=== PATIENT | female | born 1935 | race Two or more races ===

== ENCOUNTER 2017-10-30 08:26 | Outpatient (CLI) | payer MEDICARE, OTHER ==
[~2017-10-30 08:26] MED LIST: ACYCLOVIR400 MG ORAL; AGGRENOX1 CAP ORAL; BENADRYL25 MG ORAL; BENICAR40 MG PO; LEVOFLOXACIN750 MG ORAL; LEVOTHYROXINE100 MCG PO; LEXAPRO5 MG PO; LOVAZA1 GM PO; MACROBID100 MG ORAL; PREDNISONE20 MG ORAL; PROMETHAZINE V240 ML ORAL; SIMVASTATIN20 MG PO; VITAMIN D50000 UNIT PO; ZITHROMAX250 MG ORAL
--- NOTE | 2017-10-30 14:36 | Diagnostic Imaging Report ---
Indication: Cough Technique: 2 views of the chest Comparison: 11/05/2015 Findings: Less optimal inspiration with basilar atelectatic changes on the right. Heart size upper limits of normal. Aorta is tortuous calcified and ectatic, appearing more ectatic than on the prior exam. Impression: Hypoventilatory exam with right basilar atelectasis. Equivocally increased thoracic aortic ectasia since prior exam, may be artifactual due to slight differences in degree of inspiration and exposure positioning. Nonetheless, consider CT scan to rule out thoracic aortic aneurysm as clinically indicated
== END 2017-10-30 10:26 | disposition home or self-care (01) ==
LOC: RAD 08:26
DX: R05 Cough (principal); J98.11 Atelectasis
CPT/HCPCS: 71046

== ENCOUNTER 2017-11-07 12:44 | Outpatient (CLI) | payer MEDICARE, OTHER ==
--- NOTE | 2017-11-07 15:13 | Diagnostic Imaging Report ---
Indications: Right forearm pain Technique: Two views of the right forearm Comparison: None Findings: No acute fractures. No dislocations. The bones are osteoporotic. The joint spaces are preserved. Impression: Osteoporosis. No acute bony trauma
== END 2017-11-07 14:44 | disposition home or self-care (01) ==
LOC: RAD 12:44
DX: S50.11XA Contusion of right forearm, initial encounter (principal); M81.0 Age-related osteoporosis without current pathological fracture; X58.XXXA Exposure to other specified factors, initial encounter; Y92.9 Unspecified place or not applicable

== ENCOUNTER 2018-04-23 12:50 | Outpatient (RCR) | payer MEDICARE, OTHER | END 2018-04-29 | disposition home or self-care (01) | LOC: PTY 12:50 | DX: S83.242S Other tear of medial meniscus, current injury, left knee, sequela (principal); M19.90 Unspecified osteoarthritis, unspecified site; M81.0 Age-related osteoporosis without current pathological fracture; Z90.49 Acquired absence of other specified parts of digestive tract; Z90.710 Acquired absence of both cervix and uterus | CPT/HCPCS: 97110; 97161; G8978; G8979 ==

== ENCOUNTER 2018-04-30 10:25 | Outpatient (RCR) | payer MEDICARE, OTHER | END 2018-05-30 | disposition home or self-care (01) | LOC: PTY 10:25 | DX: S83.242S Other tear of medial meniscus, current injury, left knee, sequela (principal); M19.90 Unspecified osteoarthritis, unspecified site; M81.0 Age-related osteoporosis without current pathological fracture; Z90.49 Acquired absence of other specified parts of digestive tract; Z90.710 Acquired absence of both cervix and uterus | CPT/HCPCS: 97110; 97140; G8978; G8979 ==

== ENCOUNTER 2018-06-01 10:15 | Outpatient (RCR) | payer MEDICARE, OTHER | END 2018-06-29 | disposition home or self-care (01) | LOC: PTY 10:15 | DX: S83.242S Other tear of medial meniscus, current injury, left knee, sequela (principal); M19.90 Unspecified osteoarthritis, unspecified site; M81.0 Age-related osteoporosis without current pathological fracture; Z90.49 Acquired absence of other specified parts of digestive tract; Z90.710 Acquired absence of both cervix and uterus | CPT/HCPCS: 97032; 97035; 97110; 97140; G8979; G8980 ==

== ENCOUNTER 2018-08-14 13:03 | Outpatient (CLI) | payer MEDICARE, OTHER ==
--- NOTE | 2018-08-14 15:18 | Diagnostic Imaging Report ---
Indication: Cough Comparison: October 30, 2017 2 views of the chest obtained. Findings: No definite infiltrate or pulmonary vascular congestion identified. The heart is enlarged. The aorta is mildly enlarged consistent with atherosclerotic vascular disease. Surgical clips seen in the right upper quadrant abdomen The bones are osteopenic. Impression: No acute disease
== END 2018-08-14 15:03 | disposition home or self-care (01) ==
LOC: RAD 13:03
DX: Z01.818 Encounter for other preprocedural examination (principal); R05 Cough
CPT/HCPCS: 71046

== ENCOUNTER → 2020-05-20 | Outpatient (CLI) | payer MEDICARE, OTHER ==
--- NOTE | 2020-05-20 14:02 | Diagnostic Imaging Report ---
Indication: Shoulder pain status post fall Technique: 2 views of the left shoulder Comparison: None Findings: Bones are demineralized. No acute fractures identified. There is mild inferior subluxation of the humeral head. No evidence of glenohumeral dislocation. Degenerative changes noted at the acromioclavicular and glenohumeral joints. Atherosclerotic vascular calcifications. No radiopaque foreign body. Impression: No acute fracture or dislocation.
== END | disposition home or self-care (01) ==
LOC: RAD 13:11
DX: M25.512 Pain in left shoulder (principal); S43.032A Inferior subluxation of left humerus, initial encounter; W19.XXXA Unspecified fall, initial encounter; Y92.9 Unspecified place or not applicable